=== PATIENT | female | born 1975 | race Caucasian/White ===

== ENCOUNTER 2017-05-24 17:07 | Emergency (ER) | payer MEDICAID ==
[~2017-05-24] VITALS: Ht 177.8 cm; Wt 74.7 kg
[~2017-05-24 17:07] MED LIST: GABA100C; LAMO200T49; LITHIUM; PRAZ5CAP2
[2017-05-24 17:14] VITALS: BP 135/90
[2017-05-24] MEDS ORDERED: SODIUM CHLORIDE FLUSH 10ML SYR IVF ONE (18:00)
[2017-05-24] MEDS ORDERED: SODIUM CHLORIDE 0.9% 1,000ML IVBOLUS ONE (18:00)
[2017-05-24] MEDS ORDERED: ONDANSETRON 2MG/ML, 2ML IVPush ONE (18:00)
[2017-05-24 18:13] LABS: BLOOD UREA NITROGEN 9 mg/dL (7-18)
[2017-05-24] MEDS ORDERED: DIPHENHYDRAMINE 50 MG/ML, 1ML IVPush ONE (19:00)
[2017-05-24] MEDS ORDERED: METOCLOPRAMIDE 5 MG/ML, 2ML IVPush ONE (19:00)
[2017-05-24] MEDS ORDERED: DIAZEPAM 5 MG/ML, 2ML IVPush ONE (19:00)
[2017-05-24] MEDS ORDERED: METOCLOPRAMIDE 5 MG/ML, 2ML ONE (19:59)
[2017-05-24] MEDS ORDERED: DIPHENHYDRAMINE 25 MG CAPSULE ONE (19:59)
[2017-05-24] MEDS ORDERED: DIAZEPAM 5 MG TABLET ONE (19:59)
[2017-05-24] MEDS ORDERED: DIPHENHYDRAMINE 25 MG CAPSULE PO ONE (20:00)
[2017-05-24] MEDS ORDERED: METOCLOPRAMIDE 5 MG/ML, 2ML IM ONE (20:00)
[2017-05-24] MEDS ORDERED: DIAZEPAM 5 MG TABLET PO ONE (20:00)
== END 2017-05-24 20:37 | disposition home or self-care (01) ==
LOC: ED 20:31
DX: G44.219 Episodic tension-type headache, not intractable (principal); A51.49 Other secondary syphilitic conditions
CPT/HCPCS: 36415; 70450; 80048; 81003; 82040; 84703; 85025; 87210; 87491; 87591; 87808; 96372; 99285; J2765; Q0163